=== PATIENT | female | born 1995 | race Caucasian/White ===

== ENCOUNTER 2025-06-30 19:46 | Observation (INO) | payer OTHER, SELFPAY ==
[2025-06-30 20:05] VITALS: BP 104/51; BMI 25.8
[2025-06-30 20:59] LABS: Hematocrit 29.7 % (37.0-47.0); Hemoglobin 10.9 g/dL (12.0-16.0); Mean Corp Hgb Conc. 36.7 g/dL (33.0-37.0); Mean Corpuscular Volume 91.1 fL (81.0-99.0); Platelet Count 144 10^3/uL (130-400); Red Cell Dist. Width 12.4 % (11.5-14.5)
[2025-06-30 21:10] LABS: APTT 27.7 Sec (23.4-35.0); INR 1.00; PT 13.7 Sec (11.4-14.6)
[2025-06-30 21:11] LABS: Fibrinogen 292 MG/DL (199-459)
[2025-07-01 08:10] LABS: Glycohemoglobin (HgbA1c) 4.6 % (4.0-5.6)
[2025-07-01 21:18] LABS: Hepatitis B Surface Antigen Negative (Negative)
[2025-07-01 21:35] LABS: Hepatitis C Antibody Reactive (Negative)
[2025-07-02 12:51] LABS: Syphilis/T. pallidum Ab Reflex Negative (Negative)
== END 2025-06-30 23:32 ==
LOC: LDRP 19:46
PROVIDERS: ADMITTING PHYSICIAN Student in an Organized Health Care Education/Training Program
DX: O46.92 Antepartum hemorrhage, unspecified, second trimester (principal); Z3A.24 24 weeks gestation of pregnancy; F15.10 Other stimulant abuse, uncomplicated; F14.10 Cocaine abuse, uncomplicated; F12.10 Cannabis abuse, uncomplicated; O09.32 Supervision of pregnancy with insufficient antenatal care, second trimester; O99.332 Smoking (tobacco) complicating pregnancy, second trimester; F17.210 Nicotine dependence, cigarettes, uncomplicated; Z88.1 Allergy status to other antibiotic agents; Z88.0 Allergy status to penicillin; Z88.8 Allergy status to other drugs, medicaments and biological substances; Z87.820 Personal history of traumatic brain injury
CPT/HCPCS: 76805; 80306; 80307; 83036; 85027; 85384; 85460; 85610; 85730; 86762; 86780; 86803; 86850; 86900; 86901; 87340; 87389; 87491; 87591